=== PATIENT | male | born 1970 | race Two or more races ===

== ENCOUNTER 2021-01-18 15:50 | Outpatient (CLI) | payer OTHER | END 2021-01-18 16:01 | disposition home or self-care (01) | LOC: TOM 15:50 | PROVIDERS: ATTEND Internal Medicine | DX: R06.02 Shortness of breath (principal); B97.21 SARS-associated coronavirus as the cause of diseases classified elsewhere ==

== ENCOUNTER 2022-09-18 12:43 | Emergency (ER) | payer OTHER ==
[~2022-09-18] VITALS: Ht 175.3 cm; Wt 95.3 kg
[2022-09-18] MEDS ORDERED: LOSARTAN-HCTZ1 EAC1 PO (12:59)
[2022-09-18] MEDS ORDERED: CIPRO500 MG PO (19:28)
[2022-09-18] MEDS ORDERED: INTESTINEX680 M2 PO (19:28)
[2022-09-18] MEDS ORDERED: PEPCID AC20 MG PO (19:28)
== END 2022-09-18 19:56 | disposition home or self-care (01) ==
LOC: ER 12:43
DX: K52.9 Noninfective gastroenteritis and colitis, unspecified (principal); I10 Essential (primary) hypertension